=== PATIENT | female | born 2000 | race Caucasian/White ===

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

== ENCOUNTER 2021-09-10 22:56 | Emergency (ER) | payer OTHER, SELFPAY ==
[2021-09-10 22:57] VITALS: BP 134/79; PULSE 104; RESP 15; TEMP 36.4; O2SAT 100; BMI 26.4
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
--- NOTE | 2021-09-11 00:50 | RAD_ITS ---
STUDY: X-RAY - LEFT KNEE REASON FOR EXAM: Female, 21 years old. pain TECHNIQUE: 4 view(s) of the knee. COMPARISON: None. FINDINGS: Normal visualized distal femur. Normal visualized proximal tibia and fibula. Normal proximal tibiofibular articulation. Normal medial femorotibial compartment. Normal lateral femorotibial compartment. Normal patellofemoral articulation. The soft tissue structures are unremarkable. RAD/Knee 4 or More Views IMPRESSION: Normal x-ray examination of the knee. Electronically Signed: Maikel Das DO at 1:15 EST Tel , Service support ,
[2021-09-11 01:35] VITALS: PULSE 75; RESP 15; O2SAT 98
== END 2021-09-11 01:35 | disposition home or self-care (01) ==
PROVIDERS: Emergency Provider Student in an Organized Health Care Education/Training Program; PCP Internal Medicine; Visit Provider Student in an Organized Health Care Education/Training Program
DX: S80.02XA Contusion of left knee, initial encounter (principal); V44.6XXA Car passenger injured in collision with heavy transport vehicle or bus in traffic accident, initial encounter; Y93.9 Activity, unspecified; Y92.9 Unspecified place or not applicable; K21.9 Gastro-esophageal reflux disease without esophagitis
CPT/HCPCS: 73564; 99284

== ENCOUNTER 2023-10-10 19:00 | Inpatient (IN) | payer OTHER, MEDICAID, SELFPAY ==
[2023-10-10 19:15] VITALS: BMI 19.1
--- NOTE | 2023-10-10 19:23 | PCM.HP.OB ---
HPI - General General Date of Admission: 10/10/23 HPI Narrative CHACHO HERRON, is a 23 F at 40.4 weeks gestation who presents for elective induction of labor. complicated by obesity and limited care. Maternal Data Information KAREEM Calculator Estimated Delivery Date Method Current WG Current Estimate 10/06/23 Manual 40w 4d Final KAREEM: 10/06/23 PFSH PFSH Medical History GERD (gastroesophageal reflux disease) Nausea & vomiting Home Medications omeprazole 40 mg capsule,delayed release 40 mg PO DAILY #90 caps 02/01/21 [Rx Last Taken Unknown] naproxen 500 mg tablet (Naprosyn) 500 mg PO BID PRN pain #20 tabs 09/11/21 [Rx Last Taken Unknown] Allergy/AdvReac Type Severity Reaction Status Date / Time No Known Allergies Allergy Verified 10/10/23 20:23 Family History Other Hypertension Surgical History Hx of tonsillectomy Social History Smoking Status: Never smoker alcohol intake: current alcohol intake frequency: holidays/special occasions only substance use type: marijuana what type of physical activity do you participate in: none History Elective abortions Hx Para 0 Spontaneous abortions Hx # Term Pregnancies Ectopic pregnancies Hx # Pregnancies Multiple births # of living children NST FHR Rate Baby A Baseline: 140 Variability:: Moderate Accelerations:: 15 x 15 Decelerations:: None NST Reactive:: Yes Uterine Activity:: None ROS Eyes Eyes: Denies blurry vision, change in vision or spots in vision ENT HEENT: Denies dizziness or headache(s) Cardiovascular Cardiovascular: Denies abdominal pain, chest pain or dyspnea Respiratory/Chest Respiratory/Chest: Denies cough, dyspnea, shortness of breath at rest or shortness of breath with exertion Gastrointestinal Gastrointestinal: Denies abdominal pain, diarrhea or vomiting Genitourinary Genitourinary: Denies change in urinary stream, difficulty urinating or dysuria Musculoskeletal Musculoskeletal: Reports none Integumentary Integumentary: Denies rash Neurologic Neurologic: Denies dizziness, headache(s), memory loss or weakness Psychiatric Psychiatric: Reports none Physical Exam Const alert, oriented x3 and no apparent distress General Appearance: cooperative Orientation / Consciousness: awake Exam Limitations: no limitations HEENT normocephalic Head and Scalp: normal to inspection Eyes General Eye: normal appearance of both eyes Neck full ROM and no lymphadenopathy Lymph Lymphatic: no lymphadenopathy noted Chest inspection of chest normal Resp normal respiratory effort, normal air movement and clear to auscultation bilaterally Effort and Inspection: able to speak in complete sentences and symmetric chest movement Cardio regular rate and regular rhythm GI normal to inspection, nondistended, normoactive bowel sounds Manual OB Exam: presentation cephalic Back/Spine normal ROM Extremity full ROM and no calf tenderness Skin no rashes or lesions noted General Skin Exam: no breakdown Neuro oriented x3 and CN's II-XII intact bilaterally Psych mental status grossly normal and thought process normal Labs Labs Labs: Blood Type Pending Antibody Screen Pending Hct 34.1 % (37-47) L Hgb 11.2 g/dL (12.0-15.0) L Syphilis Total Ab Pending GBS NEGATIVE Assessment & Plan (1) 40 weeks gestation of : (2) Encounter for elective induction of labor: (3) Obesity affecting : (4) Limited care, antepartum: PLAN: Plan Admit to labor and delivery Routine labs CE /-2 Dailey bulb placed without difficulty and filled with 30 cc/ NS Cytotec 25 mcg PO every 4 hours with a maximum of [address] Forrester notified of admission and is collaborating physician
[2023-10-10 19:34] VITALS: BP 135/91; PULSE 100; TEMP 36.4; O2SAT 97
[2023-10-10 20:00] LABS: Absolute Lymphocyte Count 1.42 X10^3/uL (0.83-4.51); Absolute Neutrophil Count 7.8 X10^3/uL (2.0-7.7); Basophil# 0.03 X10^3/uL; Basophil% 0.3 % (0-1); Hematocrit 34.1 % (37-47); Hemoglobin 11.2 g/dL (12.0-15.0); Lymphocyte # 1.42 X10^3/ul (0.83-4.51); Lymphocyte % 14.2 % (19-41); Mean Corp Hgb Conc 32.8 g/dL (32-36); Mean Corpuscular Hgb 25.7 pg (27.0-32.0); Mean Corpuscular Volume 78.4 fL (81-99); Mean Platelet Vol. 10.4 fl (6.2-12.0); Monocyte# 0.59 X10^3/uL; Monocyte% 5.9 % (0-10); NRBC Flagged by Analyzer 0 % (0-5); Neutrophil # 7.82 X10^3/uL (2.7-7.7); Neutrophil % 77.9 % (47-70); Platelet Count 273 K/mm3 (150-450); RBC Distribution Width CV 13.8 % (11.6-14.6); RBC Distribution Width SD 38.7 fl (35.1-43.9); Red Blood Count 4.35 M/mm3 (4.2-5.4)
[2023-10-10 20:14] VITALS: PULSE 101; O2SAT 97
--- OUTSIDE RECORDS SUMMARY | 2023-10-10 20:17 | XMS RPT_ITS | CCD ---
Author Name Unknown Address [address] [place] [address] Organization [facility] Care Team Providers Care Resolution Rep Name Role Phone Unavailable Primary Care Provider Praveena DAO MD, DR CARSON Attending Unavailnorma BULLOCK APRN-PRESIDENT CELEBRITY ACQUISTION, KORY Primary Care Amandeep RIVERS, JAVAD Referring Unavailable PLOTTS, LIA Attending Unavailable TIZZANOMARLY Attending Unavailable PLOTTS, LIA Attending Unavailable WISWELL, JAVAD Referring Unavailable PLOTTS, LIA Referring Unavailable PLOTTS, LIA Referring Unavailable IRA RAMSO Attending Unavailable DUNHAM, MARTIR Attending Unavailable WISWELL, JAVAD Referring Unavailable PLOTTS, LIA Attending Unavailable PLOTTS, LIA Referring Unavailable PLOTTS, LIA Referring Unavailable HAURY, GABRIEL Referring Unavailable DUNHAM, MARTIR Referring Unavailable DUNHAM, MARTIR Attending Unavailable DUNHAM, MARTIR Referring Unavailable WISWELL, JAVAD Attending Unavailable WISWELL, JAVAD Referring Unavailable WISWELL, JAVAD Attending Unavailable WISWELL, JAVAD Referring Unavailable WISWELL, JAVAD Attending Unavailable WISWELL, JAVAD Referring Unavailable Medications Completed/Discontinued Medications Medication Drug Class(es) Dates Sig (Normalized) Sig (Original) ferrous sulfate 325 mg oral tablet (5 sources) Start: 09-11-2023 take 1 tablet by mouth once daily ferrous sulfate 325 mg (65 mg iron) tablet Take 1 tablet by mouth once daily. 30 tablet 2 09/11/2023 Active Problems Active Problems Problem Classification Problem Date Documented Da te Episodic/Chronic Diabetes mellitus without complication (7 sources) Abnormal glucose tolerance test; Translations: [Other abnormal glucose] Onset: 08-22-2023 09-11-2023 Episodic Other complications of (6 sources) care status; Translations: [Supervision of with insufficient care, third trimester] Onset: 08-22-2023 08-22-2023 Episodic Other and delivery including normal (11 sources) Normal ; Translations: [Encounter for supervision of normal first , unspecified trimester] Onset: 03-29-2023 03-01-2023 Episodic Other screening for suspected conditions (not mental disorders or infectious disease) (4 sources) Patient encounter status; Translations: [Encounter for screening for nuchal translucency] Onset: 03-29-2023 03-29-2023 Episodic Residual codes; unclassified (2 sources) Gestation period, 12 weeks; Translations: [12 weeks gestation of ] 03-29-2023 Episodic Residual codes; unclassified (1 source) Gestation period, 19 weeks; Translations: [19 weeks gestation of ] 05-17-2023 Episodic Residual codes; unclassified (1 source) Gestation period, 37 weeks; Translations: [37 weeks gestation of ] 09-18-2023 Episodic Residual codes; unclassified (1 source) Gestation period, 39 weeks; Translations: [39 weeks gestation of ] 10-01-2023 Episodic Residual codes; unclassified (1 source) Gestation period, 40 weeks; Translations: [40 weeks gestation of ] 10-08-2023 Episodic Residual codes; unclassified (1 source) 36 weeks gestation of ; Translations: [36 weeks gestation of ] Onset: 09-11-2023 Episodic Residual codes; unclassified (1 source) 35 weeks gestation of ; Translations: [35 weeks gestation of ] Onset: 09-07-2023 Episodic Residual codes; unclassified (1 source) 33 weeks gestation of ; Translations: [33 weeks gestation of ] Onset: 08-22-2023 Episodic Past or Other Problems Problem Classification Problem Date Documented Da te Episodic/Chronic Genitourinary symptoms and ill-defined conditions (10 sources) Asymptomatic bacteriuria; Translations: [Bacteriuria] Onset: 03-23-2023 03-23-2023 Episodic Nausea and vomiting (12 sources) Nausea and vomiting; Translations: [Nausea with vomiting, unspecified] Onset: 03-01-2023 03-01-2023 Episodic Residual codes; unclassified (1 source) 19 weeks gestation of ; Translations: [19 weeks gestation of ] Onset: 05-17-2023 Episodic Residual codes; unclassified (1 source) 12 weeks gestation of ; Translations: [12 weeks gestation of ] Onset: 03-29-2023 Episodic Residual codes; unclassified (1 source) 9 weeks gestation of ; Translations: [9 weeks gestation of ] Onset: 03-15-2023 Episodic Screening and history of mental health and substance abuse codes (13 sources) History of clinical finding in subject; Translations: [Personal history of nicotine dependence] Onset: 03-01-2023 03-01-2023 Episodic Results Test Name Value Interpretation Reference Range Facil ity Vital Signs Date Time Vital Sign Value Performing Clinician Faci lity 10-08-2023 14:48-0500 Body weight 102.97 kg Javad Rivers MD Work Phone: [facility] 10-08-2023 14:48-0500 Diastolic blood pressure 82 mm[Hg] Javad Rivers MD Work Phone: [facility] 10-08-2023 14:48-0500 Systolic blood pressure 122 mm[Hg] Javad Rivers MD Work Phone: [facility] 10-01-2023 11:05-0500 Body weight 104.78 kg Marly Gallardo MD Work Phone: [facility] 10-01-2023 11:05-0500 Diastolic blood pressure 80 mm[Hg] Marly Gallardo MD Work Phone: [facility] 10-01-2023 11:05-0500 Systolic blood pressure 122 mm[Hg] Marly Gallardo MD Work Phone: [facility] 09-18-2023 11:13-0500 Body weight 101.88 kg Martir Dunham APRN.CNLiza Work Phone: [facility] 09-18-2023 11:13-0500 Diastolic blood pressure 72 mm[Hg] Martir Dunham APRN.CNLiza Work Phone: [facility] 09-18-2023 11:13-0500 Systolic blood pressure 124 mm[Hg] Martir Dunham APRN.CNLiza Work Phone: [facility] 05-17-2023 15:03-0400 Body weight 86.27 kg Lia Plotts [employer] N[employer]ITION SERVICES SUPERVISOR.CNM Work Phone: [facility] 05-17-2023 15:03-0400 Diastolic blood pressure 66 mm[Hg] Lia Plotts FOOD AND NUTRITION SERVICES SUPERVISOR.CNM Work Phone: [facility] 05-17-2023 15:03-0400 Systolic blood pressure 110 mm[Hg] Lia Plotts FOOD AND NUTRITION SERVICES SUPERVISOR.CNM Work Phone: [facility] 03-29-2023 14:01-0400 Body weight 84.01 kg Lia Plotts FOOD AND NUTRITION SERVICES SUPERVISOR.CNM Work Phone: [facility] 03-29-2023 14:01-0400 Diastolic blood pressure 78 mm[Hg] Lia Plotts FOOD AND NUTRITION SERVICES SUPERVISOR.CNM Work Phone: [facility] 03-29-2023 14:01-0400 Systolic blood pressure 100 mm[Hg] Lia Plotts FOOD AND NUTRITION SERVICES SUPERVISOR.CNM Work Phone: [facility] Encounters Encounter Date Encounter Type Care Provider Facility Start: 10-08-2023 End: 10-08-2023 Patient encounter procedure Javad Rivers MD Work Phone: OB/Gynecology Procedures Date Procedure Procedure Detail Performing Clinician Start: 10-01-2023 URINE OB DIP B/O Teresita Gallardo MD Work Phone: Start: 09-18-2023 URINE OB DIP B/O Charley Dunham [employer] NUTRITION SERVICES SUPERVISOR.CNM Work Phone: Start: 05-17-2023 URINE OB DIP B/O Juanjose pyle Betsyheriberto [employer] AND NUTRITION SERVICES SUPERVISOR.CNM Work Phone: Start: 03-29-2023 Antibody screen JAVAD HECTOR Plan of Treatment Date Care Activity Detail Author Start: 08-22-2033 Urine microalbumin profile DTaP,Tdap,Td Vaccine (8 - Td or Tdap) [facility] Start: 03-15-2026 PAP TESTING PAP TESTING [facility] Start: 03-15-2026 Screening for malign ant neoplasm of cervix Pap Testing [facility] Start: 03-15-2024 CHLAMYDIA SCREENING (18-24) CHLAMYDIA SCREENING (18-24) [facility] Start: 03-15-2024 GC (GONORRHEA) JARRETT FERNÁNDEZG (18-) GC (GONORRHEA) SCREENING (-) [facility] Start: 03-15-2024 Screening for Chlamy noreen trachomatis Chlamydia Screening () [facility] Start: 08-20-2023 Depression Assessment Depression Ass essment [facility] Start: 05-17-2023 End: 07-17-2023 ALPHA FETOPRO MATERNAL [facility] Work Phone: Immunizations Immunization Date Immunization Notes Care Provider Fa irmaty 08-22-2023 respiratory syncytia l virus (RSV) vaccine, bivalent (ABRYSVO) Kristinaangeles Myleso [facility] 08-22-2023 tetanus toxoid, redu massiel diphtheria toxoid, and acellular pertussis vaccine, adsorbed [facility] Payers Date Payer Category Payer Medicaid [id number] 2023 Medicaid [id number] 2022 Unknown MMO MMO SUPERMED PPO [id number] 2022-Present [phone] [address] [place] [address] PPO [id number] 2022 Unknown [id number] 2001 Unknown [id number] Social History Date Type Detail Facility Start: 03-01-2023 Tobacco smoking stat us NEIS Never smoked tobacco [facility] Work Phone: Start: 03-01-2023 Tobacco use and exposure Smokeless tobacco non-user [facility] Work Phone: Start: 03-01-2023 End: 09-18-2023 Alcohol intake Ex-drinker (finding) [facility] Start: 03-01-2023 End: 04-08-2023 History of Social function [facility] Start: 03-01-2023 End: 04-08-2023 Tobacco use panel [facility] Start: 03-01-2023 Education 15 [facility] Start: 01-13-2023 [facility] Start: 2000 Sex Assigned At Not on file C [facility] National Score (1-10 0), lower number is lower risk 64 [facility] Goals Date Patient Goal Desired Activity /State Personal health goal Clinical Notes 03-01-2023 to 10-08-2023 Quick Notes - Javad Rivers MD - 10/08/2023 9:01 PM ESTPatient InstructionsPrenatal Quick Notes - Marly Gallardo MD - 10/01/2023 11:25 AM ESTPatient InstructionsPatient Instructions Note Date & Type Note Facility 10-08-2023 Miscellaneous Notes Formattin g of this note might be different from the original. SW- pt doing well. No ctx, vb, lof. Good FM PE: Gen- NAD, well appearing Abd- Soft, gravid, NT, S=D Ext- No edema Cvx 1/t/h, vertex See flowsheet A/p 40 wk gestation - Discussed r/b/a induction and pt requests for the induction to be started on 10/10/23. Consent signed and induction process discuss. Questions answered. Nursing staff to schedule IOL Javad Rivers DO documented in this encounter [facility] 10-08-2023 Instructions Tamika Marie Ma - 10/08/2023 2:47 PM EST SEQUENTIAL SCREENINGS The [facility] offers sequential screenings for women who are interested in screenings for chromosomal abnormalities and certain defects during a . The sequential screen combines ultrasound and blood tests to determine the risk of chromosomal abnormalities, including Down's Syndrome (Trisomy 21) and Trisomy 18, as well as open neural tube defects including spina bifida. Ultrasound examination is performed between 11 weeks and 13 weeks gestational age. Blood tests are drawn after the ultrasound and again later in the between 15 and 21 weeks gestational age. Please let your physician know if you are interested in this testing. It will require an appointment with our can technician. This is not an ultrasound performed by a physician in our office during a routine visit. SIGNS AND SYMPTOMS OF LABOR 1. Contractions every 10 minutes or more often 2. Clear, pink, or brownish fluid (water) leaking from vagina 3. Feeling that baby is pushing down, pressure 4. Low, dull backache 5. Cramps that feel like a period 6. Cramps with or without diarrhea If you notice any of the above symptoms, contact our office at [phone] and ask to speak with a nurse. After hours, you can call doctors registry at [phone] OR call [facility] at [phone] and ask to have the doctor transmission maintenance supervisor paged. If you consider this an emergency, dial 9-1-7 or go to your nearest emergency department. NEED HELP? Are you dealing with a violent or abusive relationship? Are you a victim of rape or sexual assult? Call [facility] ([place]) 24 hour Crisis Hotline: 248.156.3560 or 629-283-5166. MANUAL Your Guide to a Healthy manual is now on-line. Visit [email or web address] to download your free copy documented in this encounter [facility] 10-01-2023 Miscellaneous Notes Formattin g of this note might be different from the original. Primigravida at 39 weeks w/o specific concerns Reports ++ FM, discussed kick counts Denies ctrx, bleeding or loss of fluid 49 lb wt gain, discussed diet and hydration nl 3h gtt need to keep visits/discussed rto 1 wk. Marly Gallardo MD documented in this encounter [facility] 10-01-2023 Michaela Toussaint LPN - 10/01/2023 11:01 AM EST SEQUENTIAL SCREENINGS The [facility] offers sequential screenings for women who are interested in screenings for chromosomal abnormalities and certain defects during a . The sequential screen combines ultrasound and blood tests to determine the risk of chromosomal abnormalities, including Down's Syndrome (Trisomy 21) and Trisomy 18, as well as open neural tube defects including spina bifida. Ultrasound examination is performed between 11 weeks and 13 weeks gestational age. Blood tests are drawn after the ultrasound and again later in the between 15 and 21 weeks gestational age. Please let your physician know if you are interested in this testing. It will require an appointment with our can technician. This is not an ultrasound performed by a physician in our office during a routine visit. SIGNS AND SYMPTOMS OF LABOR 1. Contractions every 10 minutes or more often 2. Clear, pink, or brownish fluid (water) leaking from vagina 3. Feeling that baby is pushing down, pressure 4. Low, dull backache 5. Cramps that feel like a period 6. Cramps with or without diarrhea If you notice any of the above symptoms, contact our office at [phone] and ask to speak with a nurse. After hours, you can call doctors registry at [phone] OR call [facility] at [phone] and ask to have the doctor transmission maintenance supervisor paged. If you consider this an emergency, dial 9-1-5 or go to your nearest emergency department. NEED HELP? Are you dealing with a violent or abusive relationship? Are you a victim of rape or sexual assult? Call [facility] ([place]) 24 hour Crisis Hotline: 394.311.1054 or 790-592-3071. MANUAL Your Guide to a Healthy manual is now on-line. Visit [email or web address] to download your free copy documented in this encounter [facility] 09-25-2023 Note HNO ID: [id number] Author: ?, ?, ? Service: ? Author Type: ? Type: Progress Notes Filed: 09/25/2023 09:00 Note Text: POPULATION HEALTH NAVIGATION OUTREACH Action/I 3rd attempt unable to leave message to add eligibility consultant to ob provider field. Patient Identified by Name and : NO Outreach Outcome/Action Unable to reach patient: Phone number not valid / voicemail full Did you use a PCP flex slot to schedule this appointment? N/A Reason for Outreach [place] Payer: Payor: [employer] / Plan: [employer] [facility] / Product Type: Medicaid / Navigation Signature: Kristina Davies September 25, 2023 8:59 AM [facility] 09-24-2023 Note Patient Outreach (SALOMÓN LYNCH) KIMMY HERRON ([id number]) 2 F Date Time Provider Department 09/24/23 KRISTINA DAVIES During your visit today, we recorded the following information about you: Kristina Davies 09/24/2023 8:31 AM Addendum POPULATION HEALTH NAVIGATION OUTREACH Action/FYI Unable to leave message to add eligibility consultant to OB provider field Need to establish PCP My chart sent Patient Identified by Name and : NO Outreach Outcome/Action Unable to reach patient: Phone number not valid / voicemail full [employer] [place] message sent Did you use a PCP flex slot to schedule this appointment? N/A Reason for Outreach Payer: Payor: [employer] / Plan: [employer] [facility] / Product Type: Medicaid / Care Gap Reviewed:: N/A Reminder: Reminder note to check Health Maintenance for items below Health Maintenance items due: HPV Vaccine(1 - 2-dose series) Never done Influenza Vaccine(1) Never done Covid-19 Vaccine( season) due on 04/20/2023 Depression Assessment Never done Navigation Signature: Kristina Davies September 24, 2023 8:24 AM Kristina Davies 09/25/2023 9:00 AM Signed POPULATION HEALTH NAVIGATION OUTREACH Action/FYI 3rd attempt unable to leave message to add eligibility consultant to ob provider field. Patient Identified by Name and : NO Outreach Outcome/Action Unable to reach patient: Phone number not valid / voicemail full Did you use a PCP flex slot to schedule this appointment? N/A Reason for Outreach Payer: Payor: [employer] / Plan: [employer] [facility] / Product Type: Medicaid / Navigation Signature: Kristina Davies September 25, 2023 8:59 AM Allergies As of Date: 09/24/2023 (No Known Allergies) Date Reviewed: 09/18/2023 Reviewed by: Beau Moses Cma - Fully Assessed Reason for Visit: Population Health Navigation Outreach [3910] Cmt: Ob/peds Prescriptions as of 10/09/2023 - ferrous sulfate 325 mg (65 mg iron) tablet Take 1 tablet by mouth once daily. - pyridoxine, vitamin B6, (VITAMIN B-6) 50 mg tablet Take 1 tablet by mouth once daily. - VITAFUSION GUMMY TChS Take by mouth. Problem List As Of Date 09/24/2023 Noted Resolved History of nicotine vaping [Z87.891] 03/01/2023 Patient request for diagnostic testing [Z01.89] 03/01/2023 Nausea and vomiting [R11.2] 03/01/2023 Asymptomatic bacteriuria [R82.71] 03/23/2023 Limited care in third trimester [O09.3*08/22/2023 Elevated glucose tolerance test [R73.09] 08/22/2023 Encounter Status:Closed by KRISTINA DAVIES on 09/24/23 [facility] 09-24-2023 Note HNO ID: [id number] Author: ?, ?, ? Service: ? Author Type: ? Type: Progress Notes Filed: 09/24/2023 08:31 Note Text: POPULATION HEALTH NAVIGATION OUTREACH Action/FYI Unable to leave message to add eligibility consultant to OB provider field Need to establish PCP My chart sent Patient Identified by Name and : NO Outreach Outcome/Action Unable to reach patient: Phone number not valid / voicemail full [employer] message sent Did you use a PCP flex slot to schedule this appointment? N/A Reason for Outreach [place] Payer: Payor: [employer] / Plan: [employer] [facility] / Product Type: Medicaid / Care Gap Reviewed:: N/A Reminder: Reminder note to check Health Maintenance for items below Health Maintenance items due: HPV Vaccine(1 - 2-dose series) Never done Influenza Vaccine(1) Never done Covid-19 Vaccine( - 2023-24 season) due on 04/20/2023 Depression Assessment Never done Navigation Signature: Kristina Davies September 24, 2023 8:24 AM [facility] 09-24-2023 History of Presen t illness Narrative POPULATION HEALTH NAVIGATION OUTREACH Action/FYI Unable to leave message to add eligibility consultant to OB provider field Need to establish PCP My chart sent Patient Identified by Name and : NO Outreach Outcome/Action Unable to reach patient: Phone number not valid / voicemail full [employer] message sent Did you use a PCP flex slot to schedule this appointment? N/A Reason for Outreach Payer: Payor: [employer] / Plan: [employer] [facility] / Product Type: Medicaid / Care Gap Reviewed:: N/A Reminder: Reminder note to check Health Maintenance for items below Health Maintenance items due: HPV Vaccine(1 - 2-dose series) Never done Influenza Vaccine(1) Never done Covid-19 Vaccine() due on 04/20/2023 Depression Assessment Never done Navigation Signature: Kristina Davies September 24, 2023 8:24 AM documented in this encounter [facility] 09-18-2023 Miscellaneous Notes Formattin g of this note might be different from the original. S: Kimmy Herron is a 23 year old female who presents at 37w3d with KAREEM:10/06/2023, by Ultrasound for a routine visit. Denies headache, visual changes, chest pain, shortness of breath, vaginal bleeding, leakage of fluid, or dysuria. Feeling well, no complaints. O: See flow sheet Gen: No apparent distress Abd: Gravid, nontender TWG 39 lb, S=D ASSESSMENT/PLAN: 1. 37 weeks gestation of 2. Encounter for supervision of normal first in third trimester 3. Elevated glucose tolerance test 4. Limited care in third trimester P: 1) PTL precautions reviewed and when to call 2) GTT on 09/11 all wnl 3) RTO 1 week 4) Scheduled to attend [facility] in Sep Medical Decision Making: Problems: Moderate: 2+ stable chronic illnesses Data: Unique test(s) ordered: 3+ Risk: Moderate: Moderate risk from testing/treatment Medical Decision Making Level: 4 - Moderate R Demond ALLEN documented in this encounter [facility] 09-18-2023 Instructions Beau Moses Cma - 09/18/2023 11:11 AM EST SEQUENTIAL SCREENINGS The [facility] offers sequential screenings for women who are interested in screenings for chromosomal abnormalities and certain defects during a . The sequential screen combines ultrasound and blood tests to determine the risk of chromosomal abnormalities, including Down's Syndrome (Trisomy 21) and Trisomy 18, as well as open neural tube defects including spina bifida. Ultrasound examination is performed between 11 weeks and 13 weeks gestational age. Blood tests are drawn after the ultrasound and again later in the between 15 and 21 weeks gestational age. Please let your physician know if you are interested in this testing. It will require an appointment with our can technician. This is not an ultrasound performed by a physician in our office during a routine visit. SIGNS AND SYMPTOMS OF LABOR 1. Contractions every 10 minutes or more often 2. Clear, pink, or brownish fluid (water) leaking from vagina 3. Feeling that baby is pushing down, pressure 4. Low, dull backache 5. Cramps that feel like a period 6. Cramps with or without diarrhea If you notice any of the above symptoms, contact our office at [phone] and ask to speak with a nurse. After hours, you can call doctors registry at [phone] OR call [facility] at [phone] and ask to have the doctor transmission maintenance supervisor paged. If you consider this an emergency, dial 9-9-6 or go to your nearest emergency department. NEED HELP? Are you dealing with a violent or abusive relationship? Are you a victim of rape or sexual assult? Call [facility] ([place]) 24 hour Crisis Hotline: 672.321.7835 or 349-246-3306. MANUAL Your Guide to a Healthy manual is now on-line. Visit [email or web address] [email or web address] to download your free copy documented in this encounter [facility] 08-22-2023 Note HNO ID: [id number] Author: Anitra Sierra MA Service: ? Author Type: Gluing Pressman Type: Progress Notes Filed: 08/22/2023 1:03 PM Note Text: Patient identified by name and date of . Kimmy Herron presents today for a vaccination of Tdap. Patient denies an allergy to latex: yes Patient denies a severe (life-threatening) allergy to a previous dose of Tdap, DTP, DTaP, DT or Td vaccine. Yes Patient denies history of epilepsy or neurological problems: Yes Patient is afebrile and denies being moderately or severely ill: Yes Patient denies history of Guillain-[place] Syndrome (a severe paralytic illness): Yes Tdap Adacel injection was given without incident. See immunizations for details of immunizations administered today. VIS sheet provided: Yes Provider Lia Santillan CNM was present in office at time of injection. Anitra Sierra MA [facility] 05-17-2023 Miscellaneous Notes Formattin g of this note might be different from the original. Kimmy Herron is a 23 year old female who presents at 19w5d Estimated Date of Delivery: 10/06/23 for a routine visit. Just completed anatomy US. No movement to date. Nausea resolved. Appetite increased. Denies headache, visual changes, chest pain, shortness of breath, vaginal bleeding, leakage of fluid, or dysuria. Feeling well, no complaints. Size appropriate for dates. 15 lbs TWG. PTL precautions reviewed. AFP labs today RTC in 4 weeks or sooner if needed. Lia Santillan APRN.CNM documented in this encounter [facility] 05-17-2023 Instructions Beau Moses Cma - 05/17/2023 3:04 PM EDT SEQUENTIAL SCREENINGS The [facility] offers sequential screenings for women who are interested in screenings for chromosomal abnormalities and certain defects during a . The sequential screen combines ultrasound and blood tests to determine the risk of chromosomal abnormalities, including Down's Syndrome (Trisomy 21) and Trisomy 18, as well as open neural tube defects including spina bifida. Ultrasound examination is performed between 11 weeks and 13 weeks gestational age. Blood tests are drawn after the ultrasound and again later in the between 15 and 21 weeks gestational age. Please let your physician know if you are interested in this testing. It will require an appointment with our can technician. This is not an ultrasound performed by a physician in our office during a routine visit. SIGNS AND SYMPTOMS OF LABOR 1. Contractions every 10 minutes or more often 2. Clear, pink, or brownish fluid (water) leaking from vagina 3. Feeling that baby is pushing down, pressure 4. Low, dull backache 5. Cramps that feel like a period 6. Cramps with or without diarrhea If you notice any of the above symptoms, contact our office at [phone] and ask to speak with a nurse. After hours, you can call doctors registry at [phone] OR call [facility] at [phone] and ask to have the doctor transmission maintenance supervisor paged. If you consider this an emergency, dial 9-1-2 or go to your nearest emergency department. NEED HELP? Are you dealing with a violent or abusive relationship? Are you a victim of rape or sexual assult? Call [facility] ([place]) 24 hour Crisis Hotline: 759.205.1822 or 371-339-8233. MANUAL Your Guide to a Healthy manual is now on-line. Visit [email or web address] [email or web address] to download your free copy documented in this encounter [facility] 05-03-2023 Miscellaneous Notes Formattin g of this note might be different from the original. Yes, no raw seafood and stay away of high mercury fish- ie swordfish. Lia Santillan APRN.CNM Patient called asking if she can eat seafood while being please advise, can be reached at [phone] documented in this encounter [facility] 03-29-2023 Note HNO ID: [id number] Author: Ramandeep Fuentes RN Service: ? Author Type: ? Type: Progress Notes Filed: 03/29/2023 2:19 PM Note Text: Patient here for First Trimester Screening. See ultrasound report for details. Options for genetic screening and diagnosis discussed with the patient. Patient opts for first trimester screening and the sequential screening protocol. Limitations of screening tests discussed with the patient. Lia Santillan APRN.CNM [facility] 03-29-2023 Miscellaneous Notes Formattin g of this note might be different from the original. Kimmy Herron is a 23 year old female who presents at 12w5d Estimated Date of Delivery: 10/06/23 for a routine visit. Just completed NT US. Desires MaterniT 21 screening today. Denies headache, visual changes, chest pain, shortness of breath, vaginal bleeding, leakage of fluid, or dysuria. Feeling well, no complaints. Size equal to dates. 10 lbs TWG. PTL precautions reviewed. RTC in 4 weeks or sooner if needed. Will need AFP at next visit. Lia Santillan APRN.CNM documented in this encounter [facility] 03-29-2023 History of Presen t illness Narrative Patient here for First Trimester Screening. See ultrasound report for details. Options for genetic screening and diagnosis discussed with the patient. Patient opts for first trimester screening and the sequential screening protocol. Limitations of screening tests discussed with the patient. Lia Santillan APRN.CNM documented in this encounter [facility] 03-29-2023 Instructions Ramandeep Fuentes RN - 03/29/2023 10:51 AM EDT SEQUENTIAL SCREENINGS The [facility] offers sequential screenings for women who are interested in screenings for chromosomal abnormalities and certain defects during a . The sequential screen combines ultrasound and blood tests to determine the risk of chromosomal abnormalities, including Down's Syndrome (Trisomy 21) and Trisomy 18, as well as open neural tube defects including spina bifida. Ultrasound examination is performed between 11 weeks and 13 weeks gestational age. Blood tests are drawn after the ultrasound and again later in the between 15 and 21 weeks gestational age. Please let your physician know if you are interested in this testing. It will require an appointment with our can technician. This is not an ultrasound performed by a physician in our office during a routine visit. SIGNS AND SYMPTOMS OF LABOR 1. Contractions every 10 minutes or more often 2. Clear, pink, or brownish fluid (water) leaking from vagina 3. Feeling that baby is pushing down, pressure 4. Low, dull backache 5. Cramps that feel like a period 6. Cramps with or without diarrhea If you notice any of the above symptoms, contact our office at [phone] and ask to speak with a nurse. After hours, you can call doctors registry at [phone] OR call [facility] at [phone] and ask to have the doctor transmission maintenance supervisor paged. If you consider this an emergency, dial 2-1-0 or go to your nearest emergency department. NEED HELP? Are you dealing with a violent or abusive relationship? Are you a victim of rape or sexual assult? Call [facility] ([facility] 24 hour Crisis Hotline: 578.488.2657 or 337-193-6422. MANUAL Your Guide to a Healthy manual is now on-line. Visit [email or web address] [email or web address] to download your free copy SEQUENTIAL TESTING PROCESS Sequential Screen First Trimester Today you are currently: 12w5d weeks 03/29/2023: Ultrasound and blood test. Sequential Screen Second Trimester (16-17 Weeks Gestation) When you are called with your results, the nurse will give the optimal draw dates for the Sequential screen second trimester. Blood testing can be done at any [facility] lab. Please report to the any unclaimed property officer office front office representative for the Sequential Part 2 requisition and order before reporting to the lab. Your weight will need to be documented for testing. Please note: -No appointment is need for your second blood draw. -Office hours are 8 am to 4:30 pm. -Please have testing done prior to 12 noon on Sunday's -Once the sequential testing is started, in the first trimester the only follow-up will be for the sequential screen second trimester. Please don't have a Quad screen ordered by another provider. If you or your Provider have any questions please call your maternal medicine office, for east side please call [phone] or for the West side call [phone] and ask for the the nurse. Thank you. documented in this encounter [facility] 03-19-2023 Miscellaneous Notes Formattin g of this note might be different from the original. Patient declined centering. Beau Moses Cma documented in this encounter [facility] 03-15-2023 Note HNO ID: [id number] Author: Javad Rivers MD Service: ? Author Type: Physician Type: Progress Notes Filed: 03/16/2023 7:04 PM Note Text: Shoe Cementer offered: Patient declines. INITIAL OB ASSESSMENT OB Provider: Javad Rivers DO HPI: Kimym is a 23 year old White here to establish Obstetrical Care. Patient's last menstrual period was 01/10/2023 (approximate). from OB Dating Form. Cycles regular was unplanned but accepted Complaints: nausea and vomiting OB History T0 L0 SAB0 IAB0 Ectopic0 Multiple0 Live Births0 Patient's Risk Screening for delivery: MEDICAL/PSYCHOSOCIAL HISTORY: History of hemorrhage or bleeding concerns: No Thyroid Disease: No History of chronic hypertension: No History of pre-existing diabetes: No No results found for: ABORHD BMI 33.32 kg/(m2) History of abnormal pap: No Prior treatment for cervical dysplasia: none. History of STDs: None Tobacco use: No- quit vaping! Caffeine use: Yes- sweet tea Drug use: No- quit marijuana! Alcohol use: No Multivitamin with Folic acid: Yes Jain or heritage: No Would refuse blood transfusion if medically necessary: No Are you currently employed? No Do you have any history of depression, anxiety, PTSD, eating disorders or other mood problems: No Do you have any safety concerns or history of traumatic events that you would like to discuss with your provider: No How often does this describe you? I don't have enough money to pay my bills: Never Within the past 12 months, have you worried that your food would run out before you had money to buy more: Never In the past 12 months, has lack of reliable transportation kept you from going to medical appointments or work, or from keeping things needed for daily living: Never In the past 12 months, have you had any concerns about having a place to live, or about the condition or quality of your housing: Never Are there any cultural or spiritual needs we should be aware of: No Depression: denies symptoms of depression. OB Depression and Anxiety Screening- This Encounter (since 03/14/2023) None GENETIC SCREENING: Partner present: Yes Patient verbalized knowledge of partner family health history: Yes Do you or your partner have any personal or family history of defects not previously discussed: No Do you have history of a complicated by anomaly, genetic condition, or demise: No Marital Status: Engaged Partner: Name: Alli Age: 21 Occupation: Certified Income Tax Preparer Gender: Male No past medical history on file. PAST SURGICAL HISTORY Procedure Laterality Date TONSILLECTOMY AND ADENOIDECTOMY Current Outpatient Medications Medication Sig Dispense Refill VITAFUSION GUMMY TChS Take by mouth. No current facility-administered medications for this visit. Allergies As of Date: 03/15/2023 (No Known Allergies) Fully Assessed 03/15/2023 Does patient have penicillin allergy: No REVIEW OF SYSTEMS: GENERAL: Negative for: Fever or Chills HEENT: Negative for: Headache, Impaired Vision, Ringing in Ears, Nosebleeds NECK: Negative for: Swelling, Pain, Stiffness RESPIRATORY: Negative for: Cough, Shortness of breath, Wheezing GASTROINTESTINAL: Negative for: Heartburn, Constipation, Diarrhea, Blood in stool, Vomiting MUSCULOSKELETAL: Negative for: Muscle or joint pain, stiffness, Joint swelling NEUROLOGIC/PSYCHIATRIC: Negative for: Weakness, Paralysis, Numbness, Tingling, Tremor, Anxiety, Depression, Memory loss SKIN: Negative for: Rash, Itching GENITOURINARY: Negative for: vaginal itching, vaginal discharge, hematuria or dysuria PHYSICAL EXAM: BP 106/70 Ht 5' 2 (1.58m) Wt 182 lb 3.2 oz (82.6kg) LMP 01/10/2023 BMI 33.32 kg/(m2). GENERAL: pleasant in no apparent distress DERMATOLOGY: Normal, without lesions, non-icteric, and non-hirsute NECK: full range of motion CHEST: Normal inspiratory effort BREAST: soft, non-tender, symmetric, no dominant mass, normal nipple-areolar complex, no lymphadenopathy, and no nipple discharge ABDOMEN: soft, non-tender, and no masses NEURO: exam grossly non-focal PELVIS: External genitalia normal without lesions. Perineal body intact. No vaginal or cervical lesions. Cervix closed. Uterus 10 week size. No adnexal masses or tenderness. Clinical Pelvimetry: Pelvimetry clinically assessed as adequate Limited OB ultrasound exam: single intrauterine , positive cardiac activity, and crown-rump length 10w5d OB Risk Screening: Completed, no positive findings documented. SBIRT Kimmy Yahaira SandersVinicius was given the 4P's screening tool. Kimmy answered as follows: OB Opioid Screening - Last Recorded (since 06/18/2022) Did any of your parents have a problem with alcohol or other drug use? Yes Mother-drugs Does your partner have a problem with alcohol or other drug use? No In the past, h (more content not included)... [facility] 03-01-2023 Miscellaneous Notes Formattin g of this note might be different from the original. DISTANCE HEALTH VISIT This Team Access Model visit is a phone encounter. It required patient-provider interaction for the medical decision making as documented below. I have communicated my name and active licensure. The patient's identity and physical location were verified at the time of this visit. Father of the baby is involved. They are engaged. This is surprise but she feels they are adjusting to this well. Patient stopped vaping 5 months ago and stopped using marijuana 2 months ago discussed risks of vaping during and use of marijuana. Advised patient to continue not using these substances. Patient is complaining of nausea and occasional vomiting in . Dietary considerations discussed . Vitamin B6 recommended. Advised patient to call/come in if she is unable to keep any food or fluids down in a 24-hour period. Patient desires aneuploidy screening. Contact information for [facility] given to patient to check on insurance coverage. Patient considering genetic carrier screening testing. Contact information for [employer] given to patient to check on insurance coverage. Maddie Dowally signed by Maddie Regan RN at 03/01/2023 4:48 PM EDT documented in this encounter [facility]* Diagnosis care in first trimester- Primary documented in this encounter [facility] note* Diagnosis 12 weeks gestation of - Primary state, incidental Supervision of normal first , antepartum Encounter for screening for nuchal translucency documented [facility] this encounter [facility]* Diagnosis Encounter for (NT) nuchal translucency scan- Primary Other specified screening Encounter for care in first trimester of first 12 weeks gestation of state, incidental documented [facility] this encounter [facility]* Diagnosis Encounter for care in second trimester of first - Primary 19 weeks gestation of state, incidental documented in this encounter [facility] note* Diagnosis 37 weeks gestation of - Primary state, incidental Encounter for supervision of normal first in third trimester Supervision of normal first Elevated glucose tolerance test Impaired glucose tolerance test Limited care in third trimester documented in this encounter [facility] note* Diagnosis 39 weeks gestation of - Primary state, incidental documented in this encounter [facility] note* Diagnosis 40 weeks gestation of - Primary state, incidental Encounter for supervision of normal first in third trimester Supervision of normal first documented in this encounter [facility] Summary Purpose Family History No Family History Records FoundNo Family History Records FoundNo Family History Records Found Advance Directives No Advanced Directives Records FoundNo Advanced Directives Records FoundNo Advanced Directives Records Found Health Concerns Problem Noted Date Diagnosed Date [facility] Education - [facility] 03/15/2023 Education - [place] 03/15/2023 Problem Noted Date Diagnosed Date [facility] Education - [facility] 03/15/2023 Education - [place] 03/15/2023 Problem Noted Date Diagnosed Date [facility] Education - [facility] 03/15/2023 Education - [place] 03/15/2023 Problem Noted Date Diagnosed Date [facility] Education - COMMON 03/15/2023 Education - [place] 03/15/2023 Problem Noted Date Diagnosed Date [facility] Education - [facility] 03/15/2023 Education - [place] 03/15/2023 Problem Noted Date Diagnosed Date [facility] Education - [facility] 03/15/2023 Education - [place] 03/15/2023 Problem Noted Date Diagnosed Date [facility] Education - [facility] 03/15/2023 Education - [place] 03/15/2023 Problem Noted Date Diagnosed Date [facility] Education - [facility] 03/15/2023 Education - [place] 03/15/2023 Additional Source Comments Source Comments (unrecognize d section and content) In the event this informatio n is protected by the Federal Confidentiality of Alcohol and Drug Abuse Patient Records regulations: The Federal rules restrict any use of the information to criminally investigate or prosecute any alcohol or drug abuse patient.[facility] the event this information is protected by the Federal Confidentiality of Alcohol and Drug Abuse Patient Records regulations: The Federal rules restrict any use of the information to criminally investigate or prosecute any alcohol or drug abuse patient.[facility] the event this information is protected by the Federal Confidentiality of Alcohol and Drug Abuse Patient Records regulations: The Federal rules restrict any use of the information to criminally investigate or prosecute any alcohol or drug abuse patient.[facility] the event this information is protected by the Federal Confidentiality of Alcohol and Drug Abuse Patient Records regulations: The Federal rules restrict any use of the information to criminally investigate or prosecute any alcohol or drug abuse patient.[facility] the event this information is protected by the Federal Confidentiality of Alcohol and Drug Abuse Patient Records regulations: The Federal rules restrict any use of the information to criminally investigate or prosecute any alcohol or drug abuse patient.[facility] the event this information is protected by the Federal Confidentiality of Alcohol and Drug Abuse Patient Records regulations: The Federal rules restrict any use of the information to criminally investigate or prosecute any alcohol or drug abuse patient.[facility] the event this information is protected by the Federal Confidentiality of Alcohol and Drug Abuse Patient Records regulations: The Federal rules restrict any use of the information to criminally investigate or prosecute any alcohol or drug abuse patient.[facility] Hospital[facility] the event this information is protected by the Federal Confidentiality of Alcohol and Drug Abuse Patient Records regulations: The Federal rules restrict any use of the information to criminally investigate or prosecute any alcohol or drug abuse patient.[facility] Hospital[facility] the event this information is protected by the Federal Confidentiality of Alcohol and Drug Abuse Patient Records regulations: The Federal rules restrict any use of the information to criminally investigate or prosecute any alcohol or drug abuse patient.[facility] Hospital[facility] the event this information is protected by the Federal Confidentiality of Alcohol and Drug Abuse Patient Records regulations: The Federal rules restrict any use of the information to criminally investigate or prosecute any alcohol or drug abuse patient.[facility] Hospital[facility] the event this information is protected by the Federal Confidentiality of Alcohol and Drug Abuse Patient Records regulations: The Federal rules restrict any use of the information to criminally investigate or prosecute any alcohol or drug abuse patient.[facility] Hospital[facility] the event this information is protected by the Federal Confidentiality of Alcohol and Drug Abuse Patient Records regulations: The Federal rules restrict any use of the information to criminally investigate or prosecute any alcohol or drug abuse patient.[facility] Reason for Visit (unrecogniz ed section and content) Specialty Diagnoses / Procedures Referred By Mayra wood Referred To Contact [facility] Diagnoses first Procedures first Self [facility] Dept Referral ID Status Reason Start Date Expiration Date V isits Requested Visits Authorized [id number] Closed Patient Cleared - Qualified 100% FAS 02/17/2023 05/18/2023 99 99 Reason Comments Reason Onset Date Comments Care 03/29/2023 Reason Comments US Specialty Diagnoses / Procedures Referred By Mayra wood Referred To Contact [facility] Diagnoses Encounter for care in first trimester of first Procedures NUCHAL TRANSLUCENCY WHI US NUCHAL TRANSLUCENCY 1ST GESTATION Javad Rivers MD [address] [place] [address] [facility] [address] [place] [address] Referral ID Status Reason Start Date Expiration Date V isits Requested Visits Authorized [id number] Closed Auto-Generate d Referral 03/15/2023 03/14/2024 1 1 Reason Comments Patient Question Reason Onset Date Comments Care 05/17/2023 Reason Onset Date Comments Population Health Navigation Outreach 09/24/2023 Ob/peds Reason Onset Date Comments Care 09/18/2023 Reason Onset Date Comments Care 10/01/2023 Reason Onset Date Comments Care 10/08/2023 INFORMATION SOURCE (unrecogn ized section and content) DATE CREATED AUTHOR AUTHOR'S ORGANIZ ATION 04/09/2023 [facility] DATE CREATED AUTHOR AUTHOR'S ORGANIZ ATION 10/09/2023 [facility] FOR RECORDS PERTAINING TO PATIENTS WHO ARE OR HAVE BEEN ENROLLED IN A CHEMICAL DEPENDENCY/SUBSTANCEABUSE PROGRAM, SOME INFORMATION MAY BE OMITTED. This clinical summary was aggregated from multiple sources. Caution should be exercised in using it in the provision of clinical care. This summary normalizes information from multiple sources, and as a consequence, information in this document may materially change the coding, format and clinical context of patient data. In addition, data may be omitted in some cases. CLINICAL DECISIONS SHOULD BE BASED ON THE PRIMARY CLINICAL RECORDS. [facility] [facility]. provides no warranty or guarantee of the accuracy or completeness of information in this document.
[2023-10-10] MEDS: Lactated Ringers 1,000 ML 200 ML IV (20:28)
[2023-10-10] MEDS: 0.9% Normal Saline Single 100 ML IV.SOLN. INTRA-UTER (20:28)
[2023-10-10 20:41] LABS: Syphilis Antibodies Non-reactive
[2023-10-10] MEDS: miSOPROStol 25 MCG TABLET PO (20:46)
[2023-10-10 21:02] VITALS: O2SAT 97
[2023-10-10 21:03] VITALS: BP 120/79; PULSE 83; TEMP 36.4
[2023-10-10 21:10] LABS: Amphetamine Urine VISTA NEGATIVE (<1000 ng/mL); Barbiturate Urine VISTA NEGATIVE (< 200 ng/mL); Benzodiazepine Urine VISTA NEGATIVE (< 200 ng/mL); Cocaine Urine VISTA NEGATIVE (< 300 ng/mL); Ecstacy Urine VISTA NEGATIVE (< 500 ng/mL); Methadone Urine VISTA NEGATIVE (< 300 ng/mL); PCP Urine VISTA NEGATIVE (< 25 ng/mL); THC Urine VISTA POSITIVE (< 50 ng/mL); Vista UDS pH Range 5
[2023-10-10 23:17] VITALS: BMI 42.1
[2023-10-11] VITALS (72 sets, daily range): BP systolic 93–139; BP diastolic 55–86; PULSE 71–180; RESP 16–23; TEMP 36.1–37.7; O2SAT 78–100
[2023-10-11] MEDS: Oxytocin 15 Units/NS 250ml 15 UNITS/250 ML IV.SOLN 2 UNITS IV (01:21)
[2023-10-11] MEDS: Lactated Ringers 1,000 ML 50 ML IV (02:08)
[2023-10-11] MEDS: CHLORHEXIDINE GLUC 2% CLOTH 1 EACH TOWELETTE TOPICAL ×2 (05:51→14:49)
[2023-10-11] MEDS: LACTATED RINGERS 500 ML 999 ML IV ×3 (06:16→12:22)
[2023-10-11] MEDS: fentaNYL-bupivacaine (epidural) 100 ML BAG EPIDURAL ×2 (07:16→11:34)
--- NOTE | 2023-10-11 07:39 | PCM.PN.CNM ---
Subjective Subjective Patient seen at bedside. Comfortable with epidural. Objective Data Objective Data Vital Signs: Vital Signs Temp Pulse BP Pulse Ox 97.4 F L 80 132/77 H 98 10/11/23 05:50 10/11/23 07:34 10/11/23 07:34 10/11/23 07:33 Weight: 230 lb 9.656 oz Body Mass Index (BMI) 42.1 Intake & Output: Intake and Output for Last 24 Hours 10/09/23 10/10/23 10/11/23 23:59 23:59 23:59 Intake Total 1526.23 / 1526.23 Balance 1526.23 / 1526.23 Lab / Micro Data 10/10/23 19:40 Labs: Laboratory Results - last 24 hr 10/10/23 19:40: WBC 10.0, RBC 4.35, Hgb 11.2 L, Hct 34.1 L, MCV 78.4 L, MCH 25.7 L, MCHC 32.8, RDW Std Deviation 38.7, RDW Coeff of Wenceslao 13.8, Plt Count 273, MPV 10.4, Immature Gran % (Auto) 0.700, Neut % (Auto) 77.9 H, Lymph % (Auto) 14.2 L, [place] % (Auto) 5.9, Eos % (Auto) 1.0, Baso % (Auto) 0.3, Absolute Neuts (auto) 7.8 H, Absolute Lymphs (auto) 1.42, Nucleated RBC % 0, Syphilis Total Ab Non-reactive, Blood Type A POSITIVE, Antibody Screen NEGATIVE 10/10/23 20:38: Urine Opiates Screen NEGATIVE, Urine Methadone Screen NEGATIVE, Ur Barbiturates Screen NEGATIVE, Ur Phencyclidine Scrn NEGATIVE, Ur Amphetamines Screen NEGATIVE, MDMA (Ecstasy) Screen NEGATIVE, U Benzodiazepines Scrn NEGATIVE, Urine Cocaine Screen NEGATIVE, U Cannabinoids Screen POSITIVE H, Ur Drug Screen Comment Physical Exam Const alert and no apparent distress General Appearance: cooperative and comfortable Exam Limitations: no limitations HEENT normocephalic Eyes General Eye: normal appearance of both eyes Neck full ROM General: normal visual inspection Chest Chest: symmetrical chest wall rise Resp normal respiratory effort and normal air movement Effort and Inspection: symmetric chest movement Auscultation: clear to auscultation bilaterally Cardio regular rate and regular rhythm GI normal to inspection, nondistended, normoactive bowel sounds Back/Spine normal ROM Extremity no calf tenderness General Extremity: normal exam except as noted Skin no rashes or lesions noted Neuro CN's II-XII intact bilaterally Psych mental status grossly normal Assessment & Plan (1) 40 weeks gestation of : (2) Encounter for elective induction of labor: (3) Obesity affecting : (4) Limited care, antepartum: PLAN: Plan AROM for moderate amount of clear fluid IUPC and FSE placed without difficulty NST reactive Continue Pitocin 2 mu/min IV and increase per policy Dr. Ling updated and will be assuming management over patient
[2023-10-11] MEDS: Lactated Ringers 1,000 ML 200 ML IV ×2 (08:23→13:55)
[2023-10-11] MEDS: Amnioinfusion- 0.9% NS 1,000 ML IV.SOLN. 1000 ML INTRA-UTER (12:39)
--- NOTE | 2023-10-11 13:42 | PCM.PN.OB ---
Subjective Subjective Intermittent FHR decel. Pitocin is off. [place] has been a dysfunctional pattern with intermittent tachysystole. 4 /80/-2 with minimal change since AROM at 0730. Discussed with patient intolerance to increasing Pitocin to help with contraction frequency and strength. Reviewed possible need for c/s. Pt would like to waiting one more hour as long as FHT reassuring. If no further change after one hour. Agreeable to a c/s. Objective Data Objective Data Vital Signs: Vital Signs Temp Pulse BP Pulse Ox 98.8 F 105 H 130/71 H 99 10/11/23 12:51 10/11/23 13:31 10/11/23 13:31 10/11/23 11:35 Weight: 104.6 kg Body Mass Index (BMI) 42.1 Intake & Output: Intake and Output for Last 24 Hours 10/09/23 10/10/23 10/11/23 23:59 23:59 23:59 Intake Total 3149.86 / 3149.86 Balance 3149.86 / 3149.86 Lab / Micro Data 10/10/23 19:40 Labs: Laboratory Results - last 24 hr 10/10/23 19:40: WBC 10.0, RBC 4.35, Hgb 11.2 L, Hct 34.1 L, MCV 78.4 L, MCH 25.7 L, MCHC 32.8, RDW Std Deviation 38.7, RDW Coeff of Wenceslao 13.8, Plt Count 273, MPV 10.4, Immature Gran % (Auto) 0.700, Neut % (Auto) 77.9 H, Lymph % (Auto) 14.2 L, [place] % (Auto) 5.9, Eos % (Auto) 1.0, Baso % (Auto) 0.3, Absolute Neuts (auto) 7.8 H, Absolute Lymphs (auto) 1.42, Nucleated RBC % 0, Syphilis Total Ab Non-reactive, Blood Type A POSITIVE, Antibody Screen NEGATIVE 10/10/23 20:38: Urine Opiates Screen NEGATIVE, Urine Methadone Screen NEGATIVE, Ur Barbiturates Screen NEGATIVE, Ur Phencyclidine Scrn NEGATIVE, Ur Amphetamines Screen NEGATIVE, MDMA (Ecstasy) Screen NEGATIVE, U Benzodiazepines Scrn NEGATIVE, Urine Cocaine Screen NEGATIVE, U Cannabinoids Screen POSITIVE H, Ur Drug Screen Comment NST FHR Rate Baby B FHR Category:: Category II Uterine Activity:: irregular Assessment & Plan (1) Encounter for elective induction of labor: PLAN: Plan Primary c/s if no progress in 1 hour
[2023-10-11] MEDS: Sodium Citrate/Citric Acid 30 ML UDC PO (14:58)
[2023-10-11] MEDS: Acetaminophen 500 MG Tablet 1000 MG PO ×2 (14:58→21:31)
[2023-10-11] MEDS: Cefazolin 2 GM in 0.9% Normal Saline (100mL Bag) 100 ML IV (14:59)
[2023-10-11] MEDS: Azithromycin 500 MG in Dextrose 5%-Water (250mL Bag) 250 ML 250 MG IV (15:22)
--- NOTE | 2023-10-11 16:18 | OP.PCM_ITS ---
Maternal Data Information KAREEM Calculator Estimated Delivery Date Method Current WG Current Estimate 10/06/23 Manual 40w 5d Details Operative Information Date of Procedure: 10/11/23 Pre-Operative Diagnosis: (1) Inability of fetus to tolerate labor Post-Operative Diagnosis: Same Indications Narrative: The patient was taken to the operating room where epidural anesthesia was dosed & found to be adequate. She was prepped and draped in the dorsal supine position with a leftward tilt. A Pfannenstiel skin incision was made approximately 2 cm above the symphysis pubis and carried through to the underlying fascia with the scalpel. The fascia was incised incised in the midline and extended laterally with the [place] scissors. The rectus muscles were in the midline and the peritoneum was entered carefully and bluntly. The peritoneal incision was stretched and the bladder blade was inserted. Vesicouterine peritoneum was tented up, incised & then bladder flap created gently. The uterine incision was made in a low transverse fashion with the scalpel and extended superiorly and inferiorly with blunt dissection. The infant's head was brought to the incision in the flexed position and delivered without difficulty. The head was gently guided to allow delivery of the anterior and posterior shoulders. The body then delivered with fundal pressure in the standard fashion. The 3VC cord was clamped and cut in delayed fashion. The infant was handed off to the waiting fish cleaner machine tender. The placenta was delivered with fundal massage and gentle traction in the standard fashion. The uterus was exteriorized and cleared of clots and debris. The uterine incision was closed with #1 Vicryl suture in a running locked fashion. Monocryl suture was used in an imbricating fashion. The incision was examined and was found to be hemostatic. There was a hematoma on the right side of the uterine incision that was monitored for 4-5 minutes and confirmed stable (not enlarging). The uterus was returned to the abdominal cavity & it was further observed. After irrigating Mady was placed over the uterine incision as some areas were denuded (but hemostatic). The rectus muscle was examined and any bleeding was Bovie cauterized. The fascia was closed with PDS suture in a running standard fashion. The subcutaneous tissue was examining and any bleeding was Bovie cauterized. The subcutaneous tissue was reapproximated with interrupted sutures. The skin was closed in a subcuticular fashion by the SALESPERSON HOSIERY while I was present in the labor & delivery unit. The remainder of the procedure was performed by me with assistance. All sponge, lap, and needle counts were correct. The patient was taken to her room for recovery in a stable condition. Classification: OFELIA Procedure Type: low transverse veterinary virus serum inspector #1: Heather Kendall Type of Anesthesia: Epidural Antibiotic Given: Ancef 2 grams IV x1 and Zithromax 500 mg/5 mL X1 Drain: Dailey to straight drain Estimated Blood Loss: 900ml Procedure Start Time: 15:23 Procedure Stop Time: 16:17 Findings Description of Procedure: Normal maternal uterus and adnexa Presentation: Positive for Vertex Amniotic Membrane Rupture Type: Artificial Amniotic Fluid Description: Clear Placental Delivery Description: Expressed Placenta Disposition: [facility] Cord Vessel Description: 3 Vessels Cord Entanglement: None A Gender: Female (Krissy. weight = 3235g) (1 minute): 8 (5 minute): 9 Delayed Cord Clamping: Yes Complications Complications: None
[2023-10-11] MEDS: Oxytocin 15 Units/NS 250ml 15 UNITS/250 ML IV.SOLN 83 UNITS IV (17:13)
[2023-10-11] MEDS: Ketorolac 30 MG/ML Syringe IV ×2 (17:13→23:23)
[2023-10-11] MEDS: Methylergonovine 0.2 MG/ML Ampul 0.200000000000000011 MG IM (17:21)
--- NOTE | 2023-10-11 17:39 | NURSING ---
1700- steady small trickle noted
[2023-10-11] MEDS: Lactated Ringers 1,000 ML 999 ML IV (17:42)
--- NOTE | 2023-10-11 17:43 | NURSING ---
1716-steady small trickle noted, jenny pad changed, noted 199gms blood weighed to pad
[2023-10-11 19:49] LABS: Hematocrit 26.8 % (37-47); Hemoglobin 8.9 g/dL (12.0-15.0); Mean Corp Hgb Conc 33.2 g/dL (32-36); Mean Corpuscular Volume 78.4 fL (81-99); Mean Platelet Vol. 10.2 fl (6.2-12.0); Platelet Count 225 K/mm3 (150-450); RBC Distribution Width CV 14.1 % (11.6-14.6); RBC Distribution Width SD 39.5 fl (35.1-43.9); Red Blood Count 3.42 M/mm3 (4.2-5.4); White Blood Count 16.6 K/mm3 (4.4-11.0)
[2023-10-11] MEDS: Lactated Ringers 1,000 ML 100 ML IV (21:30)
[2023-10-11] MEDS: DiphenhydrAMINE 25 MG Capsule PO (21:32)
[2023-10-11] MEDS: Nalbuphine 10 MG/ML Ampul 5 MG IV (23:23)
[2023-10-12] VITALS (12 sets, daily range): BP systolic 94–133; BP diastolic 56–74; PULSE 99–122; RESP 16–20; TEMP 35.8–36.7; O2SAT 95–98
[2023-10-12] MEDS: Acetaminophen 500 MG Tablet 1000 MG PO ×4 (03:22→21:05)
--- NOTE | 2023-10-12 03:32 | NURSING ---
pad changed for moderate lochia, with few small clots.
[2023-10-12] MEDS: Lactated Ringers 1,000 ML 100 ML IV (03:48)
[2023-10-12] MEDS: Ketorolac 30 MG/ML Syringe IV ×2 (06:55→12:06)
[2023-10-12 08:10] LABS: Hematocrit 17.2 % (37-47); Mean Corp Hgb Conc 32.6 g/dL (32-36); Mean Corpuscular Hgb 25.9 pg (27.0-32.0); Mean Corpuscular Volume 79.6 fL (81-99); Mean Platelet Vol. 10.6 fl (6.2-12.0); POSITIVE COUNT YES; Platelet Count 157 K/mm3 (150-450); RBC Distribution Width CV 14.4 % (11.6-14.6); RBC Distribution Width SD 40.7 fl (35.1-43.9); Red Blood Count 2.16 M/mm3 (4.2-5.4); White Blood Count 11.3 K/mm3 (4.4-11.0)
--- NOTE | 2023-10-12 08:10 | PCM.PN.OB ---
Subjective Subjective Pt doing well. Ambulating and voiding without difficulty. She denies any lightheadedness or dizziness when she is up moving. She has spontaneously voided. Tolerating a regular diet without nausea or vomiting. She denies chest pain, shortness of breath, leg pain. Lochia is normal. She is breast-feeding. She offers no complaints this morning and pain has been well-controlled. Objective Data Objective Data Vital Signs: Vital Signs Temp Pulse Resp BP Pulse Ox O2 Del Method 96.7 F L 103 H 16 103/57 L 96 Room Air 10/12/23 06:51 10/12/23 06:51 10/12/23 06:51 10/12/23 06:51 10/12/23 06:51 10/12/23 06:51 Oxygen Delivery Method Room Air Weight: 230 lb 9.656 oz Body Mass Index (BMI) 42.1 Intake & Output: Intake and Output for Last 24 Hours 10/10/23 10/11/23 10/12/23 23:59 23:59 23:59 Intake Total 6108.19 / 6108.19 630 / 630 Output Total 2962 / 2962 250 / 250 Balance 3146.19 / 3146.19 380 / 380 Lab / Micro Data 10/11/23 19:40 Labs: Laboratory Results - last 24 hr 10/11/23 19:40: WBC 16.6 H, RBC 3.42 L, Hgb 8.9 L, Hct 26.8 L, MCV 78.4 L, MCH 26.0 L, MCHC 33.2, RDW Std Deviation 39.5, RDW Coeff of Wenceslao 14.1, Plt Count 225, MPV 10.2 Physical Exam Const alert and no apparent distress General Appearance: comfortable HEENT normocephalic Resp normal respiratory effort GI soft to palpation and non-distended GI Narrative: ATTP, dressing c/d/i, non acute Extremity normal to inspection and no calf tenderness Assessment & Plan (1) Delivery by section: PLAN: POD#1 s/p section. Doing well. . Pain is controlled, and she is ambulating and voiding without difficulty. (2) Acute blood loss anemia: PLAN: Hgb 8.9 from 11.2. Repeat CBC this AM. Discussed r/b/a IV iron and blood transfusion with the patient pending results this morning.
[2023-10-12 08:14] LABS: Hemoglobin 5.6 g/dL (12.0-15.0); Scan Indicated on CBC? Y/N NO
[2023-10-12] MEDS: Senna/Docusate Sodium 1 Tablet PO (08:26)
[2023-10-12] MEDS: 0.9% Saline Lock 10 ML Syringe IV (08:27)
[2023-10-12 09:01] LABS: Absolute Lymphocyte Count 0.91 X10^3/uL (0.83-4.51); Absolute Neutrophil Count 10.3 X10^3/uL (2.0-7.7); Basophil# 0.02 X10^3/uL; Basophil% 0.2 % (0-1); Eosinophil# 0.02 X10^3/uL; Eosinophils% 0.2 % (0-5); Hemoglobin 6.2 g/dL (12.0-15.0); Lymphocyte # 0.91 X10^3/ul (0.83-4.51); Lymphocyte % 7.7 % (19-41); Mean Corp Hgb Conc 32.6 g/dL (32-36); Mean Corpuscular Hgb 25.7 pg (27.0-32.0); Mean Corpuscular Volume 78.8 fL (81-99); Mean Platelet Vol. 10.8 fl (6.2-12.0); Monocyte# 0.44 X10^3/uL; Monocyte% 3.7 % (0-10); NRBC Flagged by Analyzer 0 % (0-5); Neutrophil % 87.4 % (47-70); Platelet Count 179 K/mm3 (150-450); RBC Distribution Width CV 14.4 % (11.6-14.6); RBC Distribution Width SD 41.4 fl (35.1-43.9); Red Blood Count 2.41 M/mm3 (4.2-5.4); White Blood Count 11.8 K/mm3 (4.4-11.0)
--- NOTE | 2023-10-12 09:13 | CT_ITS ---
STUDY: CT ABDOMEN AND PELVIS WITH CONTRAST REASON FOR EXAM: Female, 23 years old. Recent . Decreased hemoglobin. RADIATION DOSAGE (If Supplied By Facility): CTDIvol = ( 14.21 ) mGy, DLP = ( 1118.41 ) mGycm TECHNIQUE: Transaxial images were obtained from the dome of the diaphragm to the symphysis pubis without oral contrast. IV 100mL Isovue-300 was administered. Sagittal and coronal images were reconstructed. Individualized dose optimization techniques were used for this CT. COMPARISON: None. FINDINGS: The visualized lung bases are unremarkable. The visualized portions of the heart are within normal limits. Small amount of free air is seen anterior to the liver superiorly in keeping with the patient''s history of recent . Normal liver. Normal gallbladder and extrahepatic biliary system. Normal spleen. Normal pancreas. Normal bilateral adrenal glands. Normal right kidney. Normal left kidney. Normal visualized stomach. Normal small intestine. Normal colon. The appendix is visualized and appears normal. Normal abdominal aorta. Normal inferior vena cava. Normal retroperitoneum. There is evidence of a 5.6 cm x 3.4 cm soft tissue density on the right side of the uterus. This may represent a small hematoma. Normal urinary bladder. There is enlargement of the uterus. Soft tissue density and air is seen within the endometrium down to the region of the cervix. Postoperative changes are seen in the lower anterior abdominal wall at the surgical site. Normal osseous structures. CT/Abdomen/Pelvis W IV Cont ONLY IMPRESSION: Small amount of free air is seen anterior to the dome of the right lobe of the liver. Postoperative changes are seen in the deep soft tissues deep to the section operative site. Enlarged uterus with heterogeneity within the endometrium of the soft tissues and air. Findings suggestive of small hematoma along the right side of the uterus measuring 5.6 cm x 3.4 cm. Electronically Signed: Eder Neumann MD at 10:25 EST ,
--- NOTE | 2023-10-12 11:05 | CASEMGMT ---
Social Work Assessment Labor and Delivery Unit Patient Address:[address] [place] [address] [place] [address] Phone number: [phone] Date of Referral: 10/10/23 Time of Referral:? 2019 Referred By: Lia Santillan Date of Intervention: ?10/12/23? Time of Intervention:? 1039 Reason for Referral:? patient's mother is an addict Sw completed chart review and acknowledges social work consult due to maternal grandmother having history of addiction. Sw presented to bedside and introduced self to mother of baby (MOB- Kimmy) and father of baby (FOB- Alli). Parents also had a visitor present, and due to nature of conversation sw asked visitor to step out of room while sw was completing psychosocial assessment. Visitor left respectfully and politely. History obtained from: medical records, MOB and FOB Household composition: Currently residing in the family home is MOB, FOB and now baby when ready for discharge. Patient's parent/guardian status:? ?Parents state that they met while attending high school together. They have been together for 2 years. No concerns regarding domestic violence or intimate partner violence. Medical History: ?SID is 23 year old female who is 1, para 0- now 1 following labor and delivery of . SID received routine care during with [facility]. SID presented to hospital for induction of labor, baby was born on 10/11/23 at 40 weeks gestation via emergency . Baby girl, named Krissy Bustamante, was born weighing 7lb 2oz and her apgars were 8 and 9 at one and five minutes of life, respectfully. SID states that she is breast feeding and feels that it is going ok. While sw was in room MOB and FOB attempted to get baby latched for a feed, and appeared to struggle. Sw encouraged MOB to ask any questions that she may have at this time, and also encouraged MOB to follow up with outpatient supports once discharged. SID states that baby will be followed by Dr. Whitfield for pediatrics. Educational Status:?Both parents graduated high school. MOB obtained went to a vocational school for cosmetology. FOB obtained his associates degree. Parents deny issues with reading, learning or comprehension. Financial Status: Both parents are gainfully employed outside of the home. SID works for [employer] and is able to take about 7 weeks off of work for maternity leave. FOB works for [employer] and is also able to take time off now that baby has been born. Infant Supplies:??MOB states that they have obtained all necessary baby supplies, including: car seat, safe sleep space, clothes, diapers and wipes. MOB states that is also helping her obtain a breast pump. Childcare/Caregiver(s):?FOB states that MOB will be working 3-4 days out of the week, and when they need help with childcare paternal great grandma will be able to provide assistance. Transportation:?? No barriers. Programs/Agencies Involved: ??SID is receiving insurance through [employer]. Lisa informed SID that she has 30 days to get baby added to her insurance. MOB is also open to getting connected to [facility] and [facility]. Sw agreed to make referral to [facility]. ? Children Services/Legal Issues:??No former involvement with [facility]. Lisa explained that due to MOB positive drug screen for THC use sw is mandated to make a referral to Children's Services. MOB expressed understanding. - Lisa made referral to [facility] and spoke to hotline screener, Ramandeep. Ramandeep states that she will get the report written up but parents should expect a worker touching base with them. ? Behavioral Health Issues: ??Mental Health History:?Parents deny mental health history/ diagnoses. ?? Substance Use History:??MOB reports to using THC over the past 3 years to help her sleep. MOB states that she tried to cut back during but was not able to sleep. MOB states that she started using THC gummies to help her sleep during . FOB denies substance use. Family History:?MOB states that maternal grandma was an opiate user, but has been sober for 15 years. MOB states that her mom may be a childcare provider on the weekends but not regularly. ? Drug Screens: ?MOB was positive for marijuana at time of delivery. Baby urine screen has not been able to be collected, meconium is still pending. ? Family/Social Stressors:? Parents deny any concerns or stressors at this time. Support Systems: MOB states that her sister and her mom are her biggest supports. Depression/Shaken Baby/Safe Sleeping:? Lisa educated parents on signs and symptoms of baby blues and depression and anxiety. Sw provided parents with literature for their review. Parents expressed understanding. Sw educated parents on shaken baby prevention and ABCs of safe sleep. Parents express understanding. ASSESSMENT:?MOB and baby admitted at this time following labor and delivery. MOB and FOB both present for completion of psychosocial assessment. Parents were quiet and did not contribute at length to questions asked throughout assessment. FOB observed to be positive and helpful support for MOB. MOB observed providing loving and appropriate hands on care of . Parents were nervous about referral being made to Children Services, however once further discussed with social work their anxieties seemed to be aleviated. Safe Plan of Care for related to substance use:? MOB states that she does not have intentions of continuing use of smoking marijuana/ THC. MOB was encouraged to smoke outside of the home and to change clothes/ wash hands. MOB was also informed to have another person present. PLAN:? MOB and baby to be discharged when medically ready. Children Services will follow up with parents once discharged to home. ?No other services requested or indicated. Charleen Pagan, PHARMACY GENERAL MANAGER, [facility]
[2023-10-12 16:27] LABS: Hematocrit 24.3 % (37-47); Hemoglobin 8.2 g/dL (12.0-15.0)
[2023-10-12] MEDS: Ibuprofen 600 MG Tablet PO (18:53)
[2023-10-13 01:05] VITALS: BP 124/76; PULSE 107; RESP 16; TEMP 36.3; O2SAT 96
[2023-10-13] MEDS: Ibuprofen 600 MG Tablet PO ×2 (01:07→07:30)
[2023-10-13] MEDS: oxyCODONE 5 MG Tablet PO (01:10)
[2023-10-13] MEDS: Acetaminophen 500 MG Tablet 1000 MG PO ×2 (03:05→09:32)
[2023-10-13 05:33] LABS: Hematocrit 23.3 % (37-47); Hemoglobin 7.6 g/dL (12.0-15.0); Mean Corp Hgb Conc 32.6 g/dL (32-36); Mean Corpuscular Hgb 26.7 pg (27.0-32.0); Mean Corpuscular Volume 81.8 fL (81-99); Mean Platelet Vol. 9.9 fl (6.2-12.0); Platelet Count 186 K/mm3 (150-450); RBC Distribution Width SD 44.5 fl (35.1-43.9); Red Blood Count 2.85 M/mm3 (4.2-5.4); White Blood Count 12.3 K/mm3 (4.4-11.0)
--- NOTE | 2023-10-13 07:10 | PN.OBGYN_ITS ---
Subjective Subjective The patient is doing well. Pain is well-controlled. She is ambulating and voiding without difficulty. She denies any lightheadedness or dizziness. She denies chest pain, shortness of breath, leg pain. Lochia is normal normal. She is tolerating regular diet without nausea or vomiting. She desires to go home t [place]. She offers no complaints. Objective Data Objective Data Vital Signs: Vital Signs Temp Pulse Resp BP Pulse Ox O2 Del Method 97.4 F L 107 H 16 124/76 H 96 Room Air 10/13/23 01:05 10/13/23 01:05 10/13/23 01:05 10/13/23 01:05 10/13/23 01:05 10/13/23 01:05 Oxygen Delivery Method Room Air Weight: 230 lb 9.656 oz Body Mass Index (BMI) 42.1 Intake & Output: Intake and Output for Last 24 Hours 10/11/23 10/12/23 10/13/23 23:59 23:59 23:59 Intake Total 6108.19 / 6108.19 1151 / 1151 Output Total 2962 / 2962 850 / 850 600 / 600 Balance 3146.19 / 3146.19 301 / 301 -600 / -600 Lab / Micro Data 10/13/23 05:20 Labs: Laboratory Results - last 24 hr 10/10/23 17:40: Crossmatch See Detail 10/12/23 07:50: WBC 11.3 H, RBC 2.16 L, Hgb 5.6 L*, Hct 17.2 L, MCV 79.6 L, MCH 25.9 L, MCHC 32.6, RDW Std Deviation 40.7, RDW Coeff of Wenceslao 14.4, Plt Count 157, MPV 10.6 10/12/23 08:40: WBC 11.8 H, RBC 2.41 L, Hgb 6.2 L, Hct 19.0 L, MCV 78.8 L, MCH 25.7 L, MCHC 32.6, RDW Std Deviation 41.4, RDW Coeff of Wenceslao 14.4, Plt Count 179, MPV 10.8, Immature Gran % (Auto) 0.800, Neut % (Auto) 87.4 H, Lymph % (Auto) 7.7 L, [place] % (Auto) 3.7, Eos % (Auto) 0.2, Baso % (Auto) 0.2, Absolute Neuts (auto) 10.3 H, Absolute Lymphs (auto) 0.91, Nucleated RBC % 0 10/12/23 16:10: Hgb 8.2 L, Hct 24.3 L 10/13/23 05:20: WBC 12.3 H, RBC 2.85 L, Hgb 7.6 L, Hct 23.3 L, MCV 81.8, MCH 26.7 L, MCHC 32.6, RDW Std Deviation 44.5 H, RDW Coeff of Wenceslao 15.0 H, Plt Count 186, MPV 9.9 Radiography Diagnostic Testing: Radiology Impression Abdomen/Pelvis CT 10/12/23 09:13 IMPRESSION: Small amount of free air is seen anterior to the dome of the right lobe of the liver. Postoperative changes are seen in the deep soft tissues deep to the section operative site. Enlarged uterus with heterogeneity within the endometrium of the soft tissues and air. Findings suggestive of small hematoma along the right side of the uterus measuring 5.6 cm x 3.4 cm. Electronically Signed: Eder Neumann MD at 10:25 EST , Physical Exam Const alert and no apparent distress General Appearance: comfortable HEENT normocephalic Resp normal respiratory effort GI soft to palpation and non-distended GI Narrative: ATTP, non acute, dressing c/d/i Extremity no calf tenderness Assessment & Plan (1) Acute blood loss anemia: (2) Delivery by section: PLAN: Patient is postoperative day 2 from a section. Acute blood loss anemia noted. She received 2 units of packed red blood cells yesterday and her hemoglobin has been stable. CAT scan results reviewed with patient and hematoma is stable in size when compared to what it was intraoperatively. She has no symptoms of anemia. She desires to go home today. Meeting milestones for discharge. Discharge instructions reviewed.
--- NOTE | 2023-10-13 07:15 | DCINST_ITS ---
Discharge Instructions Diet Discharge Diet: No restrictions Activity Discharge Activity: May Drive (once you are no longer taking pain medication, and once you can slam on a brake or turn a steering wheel sharply) May resume sexual activity in: 6 weeks Ice area for (Minutes): 15 Weight Bearing Status: Weight bearing as tolerated Lifting Restrictions: nothing heavier than baby Dressing / Incision Call your doctor if your incision/area has: Continuous Slow Oozing, Sudden Increased Bleeding, Increased Pain/ Swelling, Increased Redness, Foul Smelling Discharge and Swelling at the incision site Call your doctor if you observe: Fever of 101 or Higher, Coldness, Increased Pain, Numbness or Tingling, Change in Color, Inability to urinate, Inability to have a bowel movement, Using more than 1 pad per hour, Shortness of breath, Dizziness, Fainting spells, Swelling in the ankles, Chest pain, Prolonged hicc upping, Increased palpitations (irregular heartbeat), Calf discomfort and Uncontrolled pain Suture Line Care: Avoid Pulling/Pushing and Avoid Pinching/Bending Remove Dressing in: 5 days Cleanse incision/area with: Soap & Water Follow Up Care Please Follow Up With: Bao Ling MD When: 1 week for incision check 6 week visit Test Results: Test results from this visit will be discussed in further detail at your follow- up appointment, if applicable. Discharge Plan Admission Admit Date/Time: 10/10/23 19:00 Primary Reason for Your Visit: deliveru Attending Provider: Bao Ling Primary Care Provider: Rober Bermudez Instructions Patient Instructions: After a Discharge Orders/Prescriptions Prescriptions: New oxycodone-acetaminophen [Percocet] 5-325 mg tablet 1 tab PO Q6H PRN (Reason: pain) 7 Days Qty: 10 0RF ibuprofen 600 mg tablet 600 mg PO Q6H PRN (Reason: pain) Qty: 30 0RF docusate sodium [Colace] 100 mg capsule 100 mg PO DAILY Qty: 30 0RF Continued ferrous sulfate 325 mg (65 mg iron) tablet Patient Comments: TAKE 1 TABLET BY MOUTH EVERY DAY [id number] 4.5-1-150-37.5 mg comb pack, tab chew and ampul PO Referrals / Follow Up: Rober Bermudez MD [Primary Care Provider] - Disposition Disposition (needs filled in before D/C Order can be placed): Home, Self Care
--- NOTE | 2023-10-13 07:16 | PCM.DC.SUM ---
Providers Date of Admission: 10/10/23 Date of Discharge: 10/13/23 Primary Care Physician: Dr. Rober Bermudez MD Reason For Visit: PRIMARY C SECTION Diagnosis Discharge Diagnosis (1) Acute blood loss anemia: Status: Acute Code(s): D62 - Acute posthemorrhagic anemia (2) Delivery by section: Status: Acute Plan: Patient is postoperative day 2 from a section. Acute blood loss anemia noted. She received 2 units of packed red blood cells yesterday and her hemoglobin has been stable. CAT scan results reviewed with patient and hematoma is stable in size when compared to what it was intraoperatively. She has no symptoms of anemia. She desires to go home today. Meeting milestones for discharge. Discharge instructions reviewed. Medications at Discharge Home Medications ferrous sulfate 325 mg (65 mg iron) tablet mg low iron 10/10/23 vits 113-iron 4.5 mg-Lmfolat 1 [id number] chew tablet,ampul ea PO 10/10/23 docusate sodium 100 mg capsule (Colace) 100 mg PO DAILY constipation #30 caps 10/13/23 ibuprofen 600 mg tablet 600 mg PO Q6H PRN pain #30 tabs 10/13/23 oxycodone-acetaminophen 5 mg-325 mg tablet (Percocet) 1 tab PO Q6H PRN pain 7 days #10 tabs 10/13/23 Hospital Course Operations section Summary of Care Provided Hospital Course: Patient presented to the hospital at 40+ weeks gestation for an induction of labor for postdates . She had a primary section for intolerance to labor. See operative report for details. She was noted to have acute blood loss anemia postoperatively. She received 2 units of packed red blood cells. CAT scan of her abdomen was obtained which showed a small stable hematoma on the uterus. On postoperative day 2 her pain was well-controlled. She was tolerating a regular diet without nausea or vomiting and she was ambulating and voiding without difficulty. She was discharged home in good condition with follow-up in the office. Weight / BMI Weight Weight: 230 lb 9.656 oz Body Mass Index (BMI) 42.1 ABG / Lab / Microbiology Data 10/13/23 05:20 Laboratory: Laboratory Results - last 24 hr 10/10/23 17:40: Crossmatch See Detail 10/12/23 07:50: WBC 11.3 H, RBC 2.16 L, Hgb 5.6 L*, Hct 17.2 L, MCV 79.6 L, MCH 25.9 L, MCHC 32.6, RDW Std Deviation 40.7, RDW Coeff of [place]encesla[place] 14.4, Plt Count 157, MPV 10.6 10/12/23 08:40: WBC 11.8 H, RBC 2.41 L, Hgb 6.2 L, Hct 19.0 L, MCV 78.8 L, MCH 25.7 L, MCHC 32.6, RDW Std Deviation 41.4, RDW Coeff of Wenceslao 14.4, Plt Count 179, MPV 10.8, Immature Gran % (Auto) 0.800, Neut % (Auto) 87.4 H, Lymph % (Auto) 7.7 L, [place] % (Auto) 3.7, Eos % (Auto) 0.2, Baso % (Auto) 0.2, Absolute Neuts (auto) 10.3 H, Absolute Lymphs (auto) 0.91, Nucleated RBC % 0 10/12/23 16:10: Hgb 8.2 L, Hct 24.3 L 10/13/23 05:20: WBC 12.3 H, RBC 2.85 L, Hgb 7.6 L, Hct 23.3 L, MCV 81.8, MCH 26.7 L, MCHC 32.6, RDW Std Deviation 44.5 H, RDW Coeff of [place]enceslao 15.0 H, Plt Count 186, MPV 9.9 Radiography Diagnostic Testing: Radiology Impression Abdomen/Pelvis CT 10/12/23 09:13 IMPRESSION: Small amount of free air is seen anterior to the dome of the right lobe of the liver. Postoperative changes are seen in the deep soft tissues deep to the section operative site. Enlarged uterus with heterogeneity within the endometrium of the soft tissues and air. Findings suggestive of small hematoma along the right side of the uterus measuring 5.6 cm x 3.4 cm. Electronically Signed: Eder Neumann MD at 10:25 EST , D/C Instructions Discharge Diet: No restrictions May resume sexual activity in: 6 weeks Ice area for (Minutes): 15 Weight Bearing Status: Weight bearing as tolerated Call your doctor if your incision/area has: Continuous Slow Oozing, Sudden Increased Bleeding, Increased Pain/ Swelling, Increased Redness, Foul Smelling Discharge and Swelling at the incision site Call your doctor if you observe: Fever of 101 or Higher, Coldness, Increased Pain, Numbness or Tingling, Change in Color, Inability to urinate, Inability to have a bowel movement, Using more than 1 pad per hour, Shortness of breath, Dizziness, Fainting spells, Swelling in the ankles, Chest pain, Prolonged hiccupping, Increased palpitations (irregular heartbeat), Calf discomfort and Uncontrolled pain Suture Line Care: Avoid Pulling/Pushing and Avoid Pinching/Bending Cleanse incision/area with: Soap & Water Please Follow Up With: Bao Ling MD When: 1 week for incision check 6 week visit Meaningful Use Info Meaningful Use Diagnoses (Choose all that apply): None applicable Discharge Plan Admission Admit Date/Time: 10/10/23 19:00 Primary Reason for Your Visit: deliveru Attending Provider: Bao Ling Primary Care Provider: Rober Bermudez Instructions Patient Instructions: After a Discharge Orders/Prescriptions Prescriptions: New oxycodone-acetaminophen [Percocet] 5-325 mg tablet 1 tab PO Q6H PRN (Reason: pain) 7 Days Qty: 10 0RF ibuprofen 600 mg tablet 600 mg PO Q6H PRN (Reason: pain) Qty: 30 0RF docusate sodium [Colace] 100 mg capsule 100 mg PO DAILY Qty: 30 0RF Continued ferrous sulfate 325 mg (65 mg iron) tablet Patient Comments: TAKE 1 TABLET BY MOUTH EVERY DAY [id number] 4.5-1-150-37.5 mg comb pack, tab chew and ampul PO Referrals / Follow Up: Rober Bermudez MD [Primary Care Provider] - Disposition Disposition (needs filled in before D/C Order can be placed): Home, Self Care
[2023-10-13 07:50] VITALS: BP 122/74; PULSE 102; RESP 16; TEMP 36.3; O2SAT 99
[2023-10-13] MEDS: Senna/Docusate Sodium 1 Tablet PO (09:32)
[2023-10-15 14:23] LABS: Pathologist Review Reviewed
== END 2023-10-13 11:06 | disposition home or self-care (01) | DRG 540 ==
PROVIDERS: Advanced Practice Midwife; Obstetrics & Gynecology; Admitting Provider Obstetrics & Gynecology; PCP Internal Medicine; Referring Provider Obstetrics & Gynecology; Visit Provider Obstetrics & Gynecology
DX: O76 Abnormality in fetal heart rate and rhythm complicating labor and delivery (principal); D62 Acute posthemorrhagic anemia; F12.99 Cannabis use, unspecified with unspecified cannabis-induced disorder; N99.61 Intraoperative hemorrhage and hematoma of a genitourinary system organ or structure complicating a genitourinary system procedure; O99.214 Obesity complicating childbirth; O99.324 Drug use complicating childbirth; O99.892 Other specified diseases and conditions complicating childbirth; O90.81 Anemia of the puerperium; Z37.0 Single live birth; Z3A.40 40 weeks gestation of pregnancy
CPT/HCPCS: 59025; 59050; 74177; 80307; 85014; 85018; 85025; 85027; 86780; 86850; 86900; 86901; 86920; 99221; J7030; J7120; P9016; Q9967; A4216; G0378; J2405